=== PATIENT | male | born 1980 | race African-American/Black ===

== ENCOUNTER → 2019-04-15 | Day surgery (SDC) | payer MEDICARE, OTHER ==
[~2019-04-15] MED LIST: BUPIVACAINE 0.25% 30ML SDV INJ ONE; CEFAZOLIN SOD 1 GM/NS 50ML 50 ML IV ONE; DEPAKOTE500 MG PO; DEXAMETHASONE SOD PHOS INJ 4 MG/ML VIAL ONE; FENTANYL CITRATE/PF 100MCG/2 ML INJ ONE; GLYCOPYRROLATE INJ 1MG/ 5 ML SYR ONE; HYDROMORPHONE 2MG/ML 2 MG/ML ML ONE; INVEGA SUS234 MG/1.5 INJ; LIDOCAINE HCL 2% LOCAL INJ 5 ML SDV VIAL INJ ONE; MIDAZOLAM HCL 2 MG/2 ML VIAL ONE; MUPIROCIN 2% OINT 22 GM TUBE ONE; NEOSTIGMINE 5 MG/5ML SYR ONE; ONDANSETRON HCL INJ 2MG/ML 2ML 2 MG/ML VIAL ONE; PROPOFOL IV EMULSION 10 MG/ML 20 ML VIAL ONE; ROCURONIUM BROMIDE 10 MG/ML 5ML VIAL ONE; SEVOFLURANE INHAL SOLN 250 ML PEN BTL ONE; WELLBUTRIN SR150 MG PO; ZOLOFT50 MG PO
--- OUTSIDE RECORDS SUMMARY | 2019-04-15 05:36 | XMS REPORT | Clinical Summary ---
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 8 Active hydrOXYzine (ATARAX) 25 Take by 0 /13/201 MG tablet mouth. 8 Active paliperidone palmitate Inject into 0 117 mg/0.75 mL syringe the shoulder, 8 thigh, or buttocks. 04/30/2018 escitalopram (LEXAPRO) 10 Take 1 tablet 30 tablet 0 03/31/201 MG tablet (10 mg total) 8 by mouth daily for 30 days. Active Problems Not on file Social History Date Tobacco Use Types Packs/Day Years Used Never Smoker Smokeless Tobacco: Never Used Alcohol Use Drinks/Week oz/Week Comments No Sex Assigned at Date Recorded Not on file Industry Job Start Date Occupation Not on file Not on file Not on file Travel End Travel History Travel Start No recent travel history available. Last Filed Vital Signs Not on file Plan of Treatment Not on file Results Not on fileafter 04/14/2018 Insurance Type Payer Benefit Subscriber ID Effective Phone Address Plan / Dates Group HMO [employer] AMERIGROUP xxxxxxxxx 2017-P DUAL resent OPTIONS [facility] [place] AMERIGROUP AMERIGROUP xxxxxxxxx 2017-P -AMERIVANT resent AGE MCR O Advance Directives Patient has advance care planning documents on file. For more information, nely costa contact: Abhay Katz [phone] [place] [address]
--- OUTSIDE RECORDS SUMMARY | 2019-04-15 05:37 | XMS REPORT | Continuity of Care Document ---
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 03/16/2019 [facility] Schizoaffective disorder, bipolar type Active 03/14/2017 03/16/2019 [facility] Muscle ache Active 03/16/2019 [facility] Nonintractable headache Active 03/16/2019 [facility] Trauma Active 03/16/2019 [facility] Schizoaffective disorder Active 03/16/2019 [facility] Depressed mood Active 03/16/2019 [facility] Schizoaffective disorder, unspecified type Active 03/16/2019 [facility] Psychiatric complaint Active 03/16/2019 [facility] Depression, unspecified depression type Active 03/16/2019 [facility] Memory deficit Active 03/16/2019 [facility] Medications Medication Details Route Status Patient Instructions Ordering Provider Order Date Source buPROPion (WELLBUTRIN XL) 150 mg extended release tablet Take 1 tablet by mouth every morning. Oral Active 07/23/2018 [facility] buPROPion (WELLBUTRIN XL) 150 mg extended release tablet Take 1 tablet by mouth every morning. Oral Active 07/23/2018 [facility] buPROPion (WELLBUTRIN XL) 150 mg extended release tablet TK 1 T PO QAM No Longer Active 07/14/2018 [facility] sertraline (ZOLOFT) 100 mg tablet Take 1.5 tablets by mouth daily. Oral Active 06/18/2018 [facility] paliperidone (INVEGA SUSTENNA) 117 mg/0.75 mL Syrg Inject 0.75 mL intramuscularly every 30 days. Intramuscular No Longer Active 06/18/2018 [facility] divalproex (DEPAKOTE ER) 500 mg extended release tablet Take 1 tablet by mouth daily. Oral Active 06/18/2018 [facility] paliperidone (INVEGA SUSTENNA) 117 mg/0.75 mL Syrg Inject 0.75 mL intramuscularly every 30 days. Intramuscular No Longer Active 06/18/2018 [facility] divalproex (DEPAKOTE ER) 500 mg extended release tablet Take 1 tablet by mouth daily. Oral Active 06/18/2018 [facility] Sertraline 50 Mg Tablet Take 1 tablet by mouth daily. Oral Active 04/23/2018 [facility] sertraline (ZOLOFT) 50 mg tablet Take 1 tablet by mouth daily. Oral No Longer Active 04/23/2018 [facility] Divalproex Er 500 Mg Tablet,Extended Release 24 Hr Depakote Er 500 Mg Tablet,Extended Release Take 1 tablet by mouth daily. Oral Active 04/02/2018 [facility] divalproex (DEPAKOTE ER) 500 mg extended release tablet Take 1 tablet by mouth daily. Oral No Longer Active 04/02/2018 [facility] divalproex (DEPAKOTE ER) 500 mg extended release tablet Take 1 tablet by mouth daily. Oral No Longer Active 04/02/2018 [facility] Escitalopram 5 Mg Tablet Lexapro 5 Mg Tablet Take 1 tablet by mouth daily. Oral No Longer Active 03/26/2018 [facility] escitalopram (LEXAPRO) 5 mg tablet Take 1 tablet by mouth daily. Oral No Longer Active 03/26/2018 [facility] escitalopram (LEXAPRO) 5 mg tablet Take 1 tablet by mouth daily. Oral No Longer Active 03/26/2018 [facility] Escitalopram 5 Mg Tablet Lexapro 5 Mg Tablet Take 1 tablet by mouth daily. Oral No Longer Active 03/07/2018 [facility] Hydroxyzine Hcl 25 Mg Tablet Take 1 tablet by mouth 2 times daily as needed for Anxiety or Insomnia. Oral No Longer Active 03/07/2018 [facility] escitalopram (LEXAPRO) 5 mg tablet Take 1 tablet by mouth daily. Oral No Longer Active 03/07/2018 [facility] hydrOXYzine (ATARAX) 25 mg tablet Take 1 tablet by mouth 2 times daily as needed for Anxiety or Insomnia. Oral No Longer Active 03/07/2018 [facility] escitalopram (LEXAPRO) 5 mg tablet Take 1 tablet by mouth daily. Oral No Longer Active 03/07/2018 [facility] Divalproex Er 500 Mg Tablet,Extended Release 24 Hr Depakote Er 500 Mg Tablet,Extended Release Take 1 tablet by mouth daily. Oral No Longer Active 02/22/2018 [facility] divalproex (DEPAKOTE ER) 500 mg extended release tablet Take 1 tablet by mouth daily. Oral No Longer Active 02/22/2018 [facility] divalproex (DEPAKOTE ER) 500 mg extended release tablet Take 1 tablet by mouth daily. Oral No Longer Active 02/22/2018 [facility] Divalproex Er 500 Mg Tablet,Extended Release 24 Hr Depakote Er 500 Mg Tablet,Extended Release Take 1 tablet by mouth daily. Oral No Longer Active 01/22/2018 [facility] Invega Sustenna 117 Mg/0.75 Ml Intramuscular Syringe Inject 0.75 mL intramuscularly every 30 days. Intramuscular Active 01/22/2018 [facility] Invega Sustenna 156 Mg/Ml Intramuscular Syringe Inject 1.5 mL intramuscularly once for 1 dose today. Intramuscular No Longer Active 01/22/2018 [facility] divalproex (DEPAKOTE ER) 500 mg extended release tablet Take 1 tablet by mouth daily. Oral No Longer Active 01/22/2018 [facility] paliperidone (INVEGA SUSTENNA) 117 mg/0.75 mL Syrg Inject 0.75 mL intramuscularly every 30 days. Intramuscular No Longer Active 01/22/2018 [facility] paliperidone (INVEGA SUSTENNA) 156 mg/mL Syrg Inject 1.5 mL intramuscularly once for 1 dose today. Intramuscular No Longer Active 01/22/2018 [facility] paliperidone (INVEGA SUSTENNA) 117 mg/0.75 mL Syrg Inject 0.75 mL intramuscularly every 30 days. Intramuscular No Longer Active 01/22/2018 [facility] Fluoxetine 20 Mg Capsule Prozac 20 Mg Capsule Take 1 capsule by mouth daily. Oral No Longer Active 12/18/2017 [facility] FLUoxetine (PROZAC) 20 mg capsule Take 1 capsule by mouth daily. Oral No Longer Active 12/18/2017 [facility] FLUoxetine (PROZAC) 20 mg capsule Take 1 capsule by mouth daily. Oral No Longer Active 12/18/2017 [facility] Invega Sustenna 117 Mg/0.75 Ml Intramuscular Syringe Inject 0.75 mL intramuscularly every 30 days. Intramuscular No Longer Active 10/23/2017 [facility] Divalproex Er 250 Mg Tablet,Extended Release 24 Hr Take 1 tablet by mouth daily. Oral Inactive 10/23/2017 [facility] paliperidone (INVEGA SUSTENNA) 117 mg/0.75 mL Syrg Inject 0.75 mL intramuscularly every 30 days. Intramuscular No Longer Active 10/23/2017 [facility] Invega Sustenna 117 Mg/0.75 Ml Intramuscular Syringe Inject 0.75 mL intramuscularly every 30 days. Intramuscular No Longer Active 07/31/2017 [facility] Divalproex Er 500 Mg Tablet,Extended Release 24 Hr Take 2 tablets by mouth daily. Oral No Longer Active 07/31/2017 [facility] Invega Sustenna 117 Mg/0.75 Ml Intramuscular Syringe Inject 0.75 mL intramuscularly every 30 days. Intramuscular Inactive 06/05/2017 [facility] Divalproex Er 500 Mg Tablet,Extended Release 24 Hr Take 1 tablet by mouth every 12 hours. Oral No Longer Active 06/05/2017 [facility] Invega Sustenna 156 Mg/Ml Intramuscular Syringe Inject 1 mL intramuscularly once for 1 dose. Intramuscular No Longer Active 05/08/2017 [facility] paliperidone (INVEGA SUSTENNA) 234 mg/1.5 mL Syrg Inject 1.5 mL intramuscularly once for 1 dose. Intramuscular No Longer Active 05/01/2017 [facility] Divalproex Er 500 Mg Tablet,Extended Release 24 Hr Take 1 tablet by mouth every 12 hours. Oral No Longer Active 05/01/2017 [facility] Divalproex Er 500 Mg Tablet,Extended Release 24 Hr Take 1 tablet by mouth every 12 hours. Oral No Longer Active 04/10/2017 [facility] Paliperidone Er 3 Mg Tablet,Extended Release 24 Hr Invega 3 Mg Tablet,Extended Release Take 1 tablet by mouth every morning. Oral No Longer Active 04/10/2017 [facility] Ibuprofen 800 Mg Tablet Take 1 tablet by mouth every 8 hours as needed for Pain. Oral Active 11/26/2015 [facility] ibuprofen (MOTRIN) 800 mg tablet Take 1 tablet by mouth every 8 hours as needed for Pain. Oral No Longer Active 11/26/2015 [facility] Allergies, Adverse Reactions, Alerts Substance Category Reaction Severity Reaction type Status Date Reported Comments Source Immunizations Immunization Date Given Site Status Last Updated Comments Source INVEGA SUSTENNA 117 MG/0.75 ML 05/21/2018 completed [facility] INVEGA SUSTENNA 117 MG/0.75 ML 04/23/2018 completed [facility] INVEGA SUSTENNA 117 MG/0.75 ML 03/26/2018 completed [facility] INVEGA SUSTENNA 117 MG/0.75 ML 02/22/2018 completed [facility] INVEGA SUSTENNA 156 mg/mL IM inj In Clinic 01/22/2018 completed [facility] INVEGA SUSTENNA 117 MG/0.75 ML 11/20/2017 completed [facility] INVEGA SUSTENNA 117 MG/0.75 ML 10/23/2017 completed [facility] INVEGA SUSTENNA 117 MG/0.75 ML 09/15/2017 completed [facility] INVEGA SUSTENNA 117 MG/0.75 ML 07/31/2017 completed [facility] INVEGA SUSTENNA 117 MG/0.75 ML 07/03/2017 completed [facility] INVEGA SUSTENNA 117 MG/0.75 ML 06/05/2017 completed [facility] INVEGA SUSTENNA 156 mg/mL IM inj In Clinic 05/08/2017 completed [facility] INVEGA SUSTENNA 156 mg/mL IM inj In Clinic 05/01/2017 completed [facility] PPD 03/24/2017 completed [facility] Results Order Name Results Value Reference Range Date Interpretation Comments Source URINE DRUG SCREEN <td ID="[id number]">Amphetamine</td><td>Negative</td><td>NEG</td><td>BT MAIN-STATION 4</td><td ID="[id number]"/> Negative NEG 02/15/2019 [facility] URINE DRUG SCREEN <td ID="[id number]">Barbiturate</td><td>Negative</td><td>NEG</td><td>BT MAIN-STATION 4</td><td ID="[id number]"/> Negative NEG 02/15/2019 [facility] URINE DRUG SCREEN <td ID="[id number]">Benzodiazepine</td><td>Negative</td><td>NEG</td><td>BT MAIN-STATION 4</td><td ID="[id number]"/> Negative NEG 02/15/2019 [facility] URINE DRUG SCREEN <td ID="[id number]">Cannabinoid</td><td>Negative</td><td>NEG</td><td>BT MAIN-STATION 4</td><td ID="[id number]"/> Negative NEG 02/15/2019 [facility] URINE DRUG SCREEN <td ID="[id number]">Cocaine</td><td>Negative</td><td>NEG</td><td>BT MAIN-STATION 4</td><td ID="[id number]"/> Negative NEG 02/15/2019 [facility] URINE DRUG SCREEN <td ID="[id number]">Opiate, Ur</td><td>Negative</td><td>NEG</td><td>BT MAIN-STATION 4</td><td ID="[id number]"/> Negative NEG 02/15/2019 [facility] URINE DRUG SCREEN <td ID="[id number]">PCP</td><td>Negative</td><td>NEG</td><td>BT MAIN-STATION 4</td><td ID="[id number]"/> Negative NEG 02/15/2019 [facility] UA CHEMISTRIES <td ID="[id number]">Color</td><td>Yellow</td><td/><td>BT MAIN-STATION 3</td><td ID="[id number]"/> Yellow 02/15/2019 [facility] UA CHEMISTRIES Clarity Clear 02/15/2019 [facility] UA CHEMISTRIES <td ID="[id number]">Spec Cecil</td><td>1.029</td><td>1.001 - 1.035</td><td>BT MAIN-STATION 3</td><td ID="[id number]"/> 1.029 1.001 - 1.035 02/15/2019 [facility] UA CHEMISTRIES <td ID="[id number]">pH</td><td>5.0</td><td>5 - 8</td><td>BT MAIN-STATION 3</td><td ID="[id number]"/> 5.0 5 - 8 02/15/2019 [facility] UA CHEMISTRIES <td ID="[id number]">Protein</td><td><span style="flagData">1+</span><span style="flagData"> (A)</span></td>&lt ;td>NEG</td><td>BT MAIN-STATION 3</td><td ID="[id number]"/> 1+ NEG 02/15/2019 [facility] UA CHEMISTRIES <td ID="[id number]">Glucose</td><td>Negative</td><td>NEG</td><td>BT MAIN-STATION 3</td><td ID="[id number]"/> Negative NEG 02/15/2019 [facility] UA CHEMISTRIES <td ID="[id number]">Ketone</td><td>Negative</td><td>NEG</td><td>BT MAIN-STATION 3</td><td ID="[id number]"/> Negative NEG 02/15/2019 [facility] UA CHEMISTRIES <td ID="[id number]">Bilirubin</td><td>Negative</td><td>NEG</td><td>BT MAIN-STATION 3</td><td ID="[id number]"/> Negative NEG 02/15/2019 [facility] UA CHEMISTRIES <td ID="[id number]">Nitrate</td><td>Negative</td><td>NEG</td><td>BT MAIN-STATION 3</td><td ID="[id number]"/> Negative NEG 02/15/2019 [facility] UA CHEMISTRIES <td ID="[id number]">Urobilinogen</td><td>1.0</td><td>0.2 - 1.0 EU/dL</td><td>BT MAIN-STATION 3</td><td ID="[id number]"/> 1.0 EU/dL 0.2 - 1 02/15/2019 [facility] UA CHEMISTRIES <td ID="[id number]">Leukocyte</td><td>Negative</td><td>NEG</td><td>BT MAIN-STATION 3</td><td ID="[id number]"/> Negative NEG 02/15/2019 [facility] UA CHEMISTRIES Blood Negative NEG 02/15/2019 [facility] UA CHEMISTRIES RBC 3 0 - 4 02/15/2019 [facility] UA CHEMISTRIES WBC <1 0 - 5 02/15/2019 [facility] UA CHEMISTRIES Mucous Present 02/15/2019 [facility] UA CHEMISTRIES Lab Interpretation Abnormal 02/15/2019 [facility] URINE DRUG SCREEN Amphetamine Negative NEG 07/23/2018 Calibrated Standard: D-Methamphetamine Positive if urine level >rt=4725 ng/mL Test performed on [id number] using EMIT Immunoassay [facility] URINE DRUG SCREEN Barbiturate Negative NEG 07/23/2018 Calibrated Standard: Secobarbital Positive if urine level is >te=828 ng/mL Test performed on [id number] using EMIT Immunoassay [facility] URINE DRUG SCREEN Benzodiazepine Negative NEG 07/23/2018 Calibrated Standard: Lormethazepam Positive if urine level is >dt=234 ng/mL Test performed on [id number] using EMIT Immunoassay [facility] URINE DRUG SCREEN Cannabinoid Negative NEG 07/23/2018 Calibrated Standard: 11 nor-delta(9)-THC carboxylic a Positive if urine level >or=50 Test performed on [id number] using EMIT Immunoassay [facility] URINE DRUG SCREEN Cocaine Negative NEG 07/23/2018 Calibrated Standard: Benzoylecgonine Positive if urine level >pk=364 Test performed on [id number] using EMIT Immunoassay [facility] URINE DRUG SCREEN Opiate, Ur Negative NEG 07/23/2018 Calibrated Standard: Morphine Positive if urine level >tx=989 Test performed on [id number] using EMIT Immunoassay [facility] URINE DRUG SCREEN PCP Negative NEG 07/23/2018 Calibrated Standard: Phencyclidine Positive if urine level >or=25 Test performed on [id number] using EMIT Immunoassay Urine Toxicology Screen results are to be used only for Medical purposes. [facility] UA CHEMISTRIES Color Yellow 07/23/2018 [facility] UA CHEMISTRIES Clarity Clear 07/23/2018 [facility] UA CHEMISTRIES Spec Cecil 1.018 1.001 - 1.035 07/23/2018 [facility] UA CHEMISTRIES pH 7.0 5 - 8 07/23/2018 [facility] UA CHEMISTRIES Protein Negative NEG 07/23/2018 [facility] UA CHEMISTRIES Glucose Negative NEG 07/23/2018 [facility] UA CHEMISTRIES Ketone Negative NEG 07/23/2018 [facility] UA CHEMISTRIES Bilirubin Negative NEG 07/23/2018 [facility] UA CHEMISTRIES Nitrate Negative NEG 07/23/2018 [facility] UA CHEMISTRIES Urobilinogen <1.0 0.2 - 1 07/23/2018 [facility] UA CHEMISTRIES Leukocyte Negative NEG 07/23/2018 [facility] UA CHEMISTRIES Blood Negative NEG 07/23/2018 [facility] UA CHEMISTRIES Color Yellow 03/07/2018 [facility] UA CHEMISTRIES Clarity Clear 03/07/2018 [facility] UA CHEMISTRIES Spec Cecil 1.030 1.001 - 1.035 03/07/2018 [facility] UA CHEMISTRIES pH 5.0 5 - 8 03/07/2018 [facility] UA CHEMISTRIES Protein 1+ NEG 03/07/2018 Abnormal [facility] UA CHEMISTRIES Glucose Negative NEG 03/07/2018 [facility] UA CHEMISTRIES Ketone Trace NEG 03/07/2018 Abnormal [facility] UA CHEMISTRIES Bilirubin Negative NEG 03/07/2018 [facility] UA CHEMISTRIES Nitrate Negative NEG 03/07/2018 [facility] UA CHEMISTRIES Urobilinogen <1.0 0.2 - 1 03/07/2018 [facility] UA CHEMISTRIES Leukocyte Negative NEG 03/07/2018 [facility] UA CHEMISTRIES Blood Negative NEG 03/07/2018 [facility] UA CHEMISTRIES RBC 3 /HPF 0 - 4 03/07/2018 [facility] UA CHEMISTRIES WBC <1 0 - 5 03/07/2018 [facility] UA CHEMISTRIES Mucous Present 03/07/2018 [facility] UA CHEMISTRIES Lab Interpretation Abnormal 03/07/2018 [facility] URINE DRUG SCREEN Amphetamine Negative NEG 03/07/2018 Calibrated Standard: D-Methamphetamine Positive if urine level >tl=9691 ng/mL Test performed on [id number] using EMIT Immunoassay [facility] URINE DRUG SCREEN Barbiturate Negative NEG 03/07/2018 Calibrated Standard: Secobarbital Positive if urine level is >vk=863 ng/mL Test performed on [id number] using EMIT Immunoassay [facility] URINE DRUG SCREEN Benzodiazepine Negative NEG 03/07/2018 Calibrated Standard: Lormethazepam Positive if urine level is >sm=785 ng/mL Test performed on [id number] using EMIT Immunoassay [facility] URINE DRUG SCREEN Cannabinoid Negative NEG 03/07/2018 Calibrated Standard: 11 nor-delta(9)-THC carboxylic a Positive if urine level >or=50 Test performed on [id number] using EMIT Immunoassay [facility] URINE DRUG SCREEN Cocaine Negative NEG 03/07/2018 Calibrated Standard: Benzoylecgonine Positive if urine level >nb=406 Test performed on [id number] using EMIT Immunoassay [facility] URINE DRUG SCREEN Opiate, Ur Negative NEG 03/07/2018 Calibrated Standard: Morphine Positive if urine level >qn=231 Test performed on [id number] using EMIT Immunoassay [facility] URINE DRUG SCREEN PCP Negative NEG 03/07/2018 Calibrated Standard: Phencyclidine Positive if urine level >or=25 Test performed on [id number] using EMIT Immunoassay Urine Toxicology Screen results are to be used only for Medical purposes. [facility] Vital Signs Vital Sign Value Date Comments Source Systolic (mm Hg) 119 02/15/2019 [facility] Diastolic (mm Hg) 76 02/15/2019 [facility] Heart Rate 74 02/15/2019 [facility] Temperature Oral (F) 37.11 Aidee 02/15/2019 [facility] Respitory Rate 18 02/15/2019 [facility] Height 180.3 cm 02/15/2019 [facility] Weight 104.327 02/15/2019 [facility] Systolic (mm Hg) 122 07/23/2018 [facility] Diastolic (mm Hg) 84 07/23/2018 [facility] Heart Rate 93 07/23/2018 [facility] Temperature Oral (F) 36.83 Aidee 07/23/2018 [facility] Respitory Rate 18 07/23/2018 [facility] Height 177.8 cm 07/23/2018 [facility] Weight 104.872 07/23/2018 [facility] Systolic (mm Hg) 124 04/23/2018 [facility] Diastolic (mm Hg) 76 04/23/2018 [facility] Heart Rate 88 04/23/2018 [facility] Temperature Oral (F) 36.67 Aidee 04/23/2018 [facility] Respitory Rate 18 04/23/2018 [facility] Height 180.3 cm 04/23/2018 [facility] Weight 102.967 04/23/2018 [facility] BMI Calculated 31.66 04/23/2018 [facility] Systolic (mm Hg) 131 03/31/2018 [facility] Diastolic (mm Hg) 87 03/31/2018 [facility] Heart Rate 84 03/31/2018 [facility] Temperature Oral (F) 36.72 Aidee 03/31/2018 [facility] Respitory Rate 16 03/31/2018 [facility] Height 180.3 cm 03/26/2018 [facility] Weight 102.513 03/26/2018 [facility] BMI Calculated 31.52 03/26/2018 [facility] Encounters Location Location Details Encounter Type Encounter Number Reason For Visit Attending Provider ADM Date DC Date Status Source Mental Health Services BT Office Visit [id number] Other schizophrenia Undifferentiated schizophrenia Dante Dao MD 05/01/2017 05/01/2017 [facility] Mental Health Services BT Office Visit [id number] Other schizophrenia Dante Dao MD 05/08/2017 05/08/2017 [facility] Mental Health Services BT Office Visit [id number] Other schizophrenia Undifferentiated schizophrenia Dante Dao MD 06/05/2017 06/05/2017 [facility] Mental Health Services BT Nurse Only [id number] Psychiatric problem Peggy Basilio RN 07/03/2017 07/03/2017 [facility] Mental Health Services BT Office Visit [id number] Other schizophrenia Undifferentiated schizophrenia Dante Dao MD 07/31/2017 07/31/2017 [facility] Mental Health Services BT Office Visit [id number] Undifferentiated schizophrenia Clover Martell MD 09/15/2017 09/15/2017 [facility] ASK YOUR NURSE PROGRAM Nurse Triage [id number] Ratna Meyer 10/21/2017 [facility] BT Office Visit [id number] Undifferentiated schizophrenia Dante Dao MD 10/23/2017 10/23/2017 [facility] Mental Health Services BT Office Visit [id number] Other schizophrenia Dante Dao MD 11/20/2017 11/20/2017 [facility] Mental Health Services BT Office Visit [id number] Depressed mood Dante Dao MD 12/18/2017 12/18/2017 [facility] Mental Health Services BT Office Visit [id number] Dante Dao MD 01/22/2018 01/22/2018 [facility] MHS INT OUT PROG BT Office Visit [id number] Gabe Vega MD 02/22/2018 02/22/2018 [facility] Mental Health Services BT Office Visit [id number] Nichole Loving Fellow() 03/05/2018 03/05/2018 [facility] BT Emergency [id number] Kira Tran MD 03/07/2018 03/08/2018 [facility] Behavioral Health/Counseling [facility] Office Visit [id number] Kulwinder Schrader 03/24/2018 03/24/2018 [facility] Refill [id number] Kira Tran MD 03/25/2018 [facility] MHS INT OUT PROG BT Office Visit [id number] Nichole Monteiro MD 03/26/2018 03/26/2018 [facility] Emergency [place] BT Emergency [id number] 03/31/2018 03/31/2018 [facility] LOTS PSYCHIATRY Telephone [id number] Dante Dao MD 04/02/2018 [facility] Mental Health Services BT Office Visit [id number] Harry Umairhuseyin ResidentMD 04/23/2018 04/23/2018 [facility] Mental Health Services BT Nurse Only [id number] Cherelle Ortiz RN 05/21/2018 05/21/2018 [facility] Mental Health Services BT Office Visit [id number] Dante Dao MD 06/18/2018 06/18/2018 [facility] Mental Health Services BT Orders Only [id number] Clover Martell MD 07/22/2018 [facility] Mental Health Services BT Nurse Only [id number] Clover Martell MD 07/22/2018 07/22/2018 [facility] Emergency [place] BT Emergency [id number] Shelly Ramirez MD 07/23/2018 07/23/2018 [facility] Mental Health Services BT Office Visit [id number] Rebecca Luis ResidentAR 07/23/2018 07/23/2018 [facility] Travel [id number] 02/14/2019 [facility] Emergency [place] BT Emergency [id number] Claudia Donovan MD 02/15/2019 02/15/2019 [facility] Procedures Procedure Code Date Perfomer Comments Source UA CHEMISTRIES [id number] 02/15/2019 [facility] URINE DRUG SCREEN [id number] 02/15/2019 [facility] UA CHEMISTRIES [id number] 07/23/2018 [facility] URINE DRUG SCREEN [id number] 07/23/2018 [facility] URINE DRUG SCREEN [id number] 03/08/2018 [facility] UA CHEMISTRIES [id number] 03/08/2018 [facility]
--- OUTSIDE RECORDS SUMMARY | 2019-04-15 05:37 | XMS REPORT | Clinical Summary ---
Author Author [facility] Organization [facility] Address Unknown Phone Unavailable Care Team Providers Care Line Inspector Name Role Phone PCP Unavailable Allergies No Known Allergies Medications End Date Status Medication Sig Dispensed Refills Start Date Active sertraline (ZOLOFT) 100 Take 1.5 90 tablet 1 mg tabletIndications: tablets by 8 Depression, unspecified mouth daily. depression type Active divalproex (DEPAKOTE ER) Take 1 tablet 90 tablet 1 500 mg extended release by mouth 8 tabletIndications: daily. Schizoaffective disorder, unspecified type Active buPROPion (WELLBUTRIN XL) Take 1 tablet 30 tablet 2 150 mg extended release by mouth 8 tabletIndications: every Depressed mood morning. 06/18/2018 Discontinued ibuprofen (MOTRIN) 800 mg Take 1 tablet 20 tablet 0 tabletIndications: Muscle by mouth 6 ache, Nonintractable every 8 hours headache, unspecified as needed for chronicity pattern, Pain. unspecified headache type 01/22/2018 Discontinued paliperidone (INVEGA Inject 0.75 0.75 mL 3 SUSTENNA) 117 mg/0.75 mL mL 7 Syrg intramuscular ly every 30 days. 03/26/2018 Discontinued FLUoxetine (PROZAC) 20 mg Take 1 30 capsule 2 capsuleIndications: capsule by 8 Depressed mood mouth daily. 02/22/2018 Discontinued divalproex (DEPAKOTE ER) Take 1 tablet 30 tablet 2 500 mg extended release by mouth 8 tabletIndications: daily. Schizoaffective disorder, unspecified type 06/18/2018 Discontinued paliperidone (INVEGA Inject 0.75 0.75 mL 3 SUSTENNA) 117 mg/0.75 mL mL 8 SyrgIndications: intramuscular Schizoaffective disorder, ly every 30 unspecified type days. 01/22/2018 paliperidone (INVEGA Inject 1.5 mL 1.5 mL 0 SUSTENNA) 156 mg/mL intramuscular 8 SyrgIndications: ly once for 1 Schizoaffective disorder, dose today. unspecified type 04/02/2018 Discontinued divalproex (DEPAKOTE ER) Take 1 tablet 30 tablet 1 500 mg extended release by mouth 8 tabletIndications: daily. Schizoaffective disorder, unspecified type 03/26/2018 Discontinued escitalopram (LEXAPRO) 5 Take 1 tablet 20 tablet 0 mg tabletIndications: by mouth 8 Schizoaffective disorder, daily. unspecified type 04/23/2018 Discontinued hydrOXYzine (ATARAX) 25 Take 1 tablet 40 tablet 0 mg tabletIndications: by mouth 2 8 Schizoaffective disorder, times daily unspecified type as needed for Anxiety or Insomnia. 04/23/2018 Discontinued escitalopram (LEXAPRO) 5 Take 1 tablet 30 tablet 1 mg tabletIndications: by mouth 8 Schizoaffective disorder, daily. unspecified type 06/18/2018 Discontinued divalproex (DEPAKOTE ER) Take 1 tablet 90 tablet 0 500 mg extended release by mouth 8 tabletIndications: daily. Schizoaffective disorder, unspecified type 06/18/2018 Discontinued sertraline (ZOLOFT) 50 mg Take 1 tablet 30 tablet 1 tabletIndications: by mouth 8 Depression, unspecified daily. depression type 07/23/2018 Discontinued paliperidone (INVEGA Inject 0.75 0.75 mL 4 SUSTENNA) 117 mg/0.75 mL mL 8 SyrgIndications: intramuscular Schizoaffective disorder, ly every 30 unspecified type days. 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 Schizoaffective disorder, bipolar type 03/14/2017 Muscle ache Nonintractable headache Trauma Schizoaffective disorder Encounters Care Team Description Date Type Specialty Rebecca Luis ResidentMD Le, Hai, MD Depressed mood (Primary Dx) 07/23/2018 Office Visit Psychiatry Shelly Ramirez MD Schizoaffective disorder, unspecified type (Primary Dx) 07/23/2018 Emergency Emergency Medicine Clover Martell MD Magdos, Christi, RN Psychiatric complaint (Primary Dx) 07/22/2018 Nurse Only Psychiatry Clover Martell MD Schizoaffective disorder, unspecified type 07/22/2018 Orders Only Psychiatry Dante Dao MD Depression, unspecified depression type; Schizoaffective disorder, unspecified type 06/18/2018 Office Visit Psychiatry Cherelle Ortiz RN Le, Hai, MD 05/21/2018 Nurse Only Psychiatry Harry Vera ResidentMD Schizoaffective disorder, unspecified type (Primary Dx); Depression, unspecified depression type 04/23/2018 Office Visit Psychiatry Dante Dao MD Follow-up 04/02/2018 Telephone Psychiatry 03/30/2018 Emergency Emergency Medicine Nichole John MD Schizoaffective disorder, unspecified type 03/26/2018 Office Visit Psychiatry Kira Tran MD Schizoaffective disorder, unspecified type 03/25/2018 Refill Psychiatry Kulwinder Schrader Schizoaffective disorder, unspecified type (Primary Dx) 03/24/2018 Office Visit Psychology Kira Tran MD Schizoaffective disorder, unspecified type (Primary Dx) 03/07/2018 Emergency Emergency Medicine Nichole Loving, Fellow(MD) Dante Dao MD Schizoaffective disorder, unspecified type (Primary Dx) 03/05/2018 Office Visit Psychiatry Gabe Vega MD Schizoaffective disorder, bipolar type (Primary Dx); Schizoaffective disorder, unspecified type 02/22/2018 Office Visit Psychiatry Dante Dao MD Schizoaffective disorder, unspecified type (Primary Dx) 01/22/2018 Office Visit Psychiatry after 12/22/2017 Immunizations Name Dates Previously Given Next Due INVEGA SUSTENNA 117 05/21/2018, 04/23/2018, 03/26/2018, 02/22/2018, MG/0.75 ML 11/20/2017, 10/23/2017, 09/15/2017, 07/31/2017, 07/03/2017, 06/05/2017 INVEGA SUSTENNA 156 mg/mL 01/22/2018, 05/08/2017, 05/01/2017 IM inj In Clinic PPD 03/24/2017 Social History Date Tobacco Use Types Packs/Day Years Used Former Smoker Alcohol Use Drinks/Week oz/Week Comments No Sex Assigned at Date Recorded Not on file Industry Job Start Date Occupation Not on file Not on file Not on file Travel End Travel History Travel Start No recent travel history available. Last Filed Vital Signs Time Taken Vital Sign Reading 07/23/2018 2:13 PM CDT Blood Pressure 122/84 07/23/2018 2:13 PM CDT Pulse 93 07/23/2018 2:13 PM CDT Temperature 36.8 C (98.3 F) 07/23/2018 2:13 PM CDT Respiratory Rate 18 07/23/2018 2:13 PM CDT Oxygen Saturation 98% - Inhaled Oxygen - Concentration 07/23/2018 2:13 PM CDT Weight 104.9 kg (231 lb 3.2 oz) 07/23/2018 2:13 PM CDT Height 177.8 cm (5' 10") 07/23/2018 2:13 PM CDT Body Mass Index 33.17 Plan of Treatment Health Maintenance Due Date Last Done Comments IMM Influenza Seasonal 07/26/2018 Oct to December (>/=19 yrs) Procedures Comments Procedure Name Priority Date/Time Associated Diagnosis URINE DRUG SCREEN STAT 07/23/2018 12:37 PM CDT UA CHEMISTRIES STAT 07/23/2018 12:37 PM CDT UA CHEMISTRIES STAT 03/07/2018 8:00 PM CDT URINE DRUG SCREEN STAT 03/07/2018 8:00 PM CDT after 12/22/2017 Results * UA CHEMISTRIES (07/23/2018 12:37 PM CDT) Only the most recent of 2 results within the time period is included. Color Yellow BT MAIN-STATION 3 Clarity Clear BT MAIN-STATION 3 Spec [place] 1.018 1.001 - 1.035 BT MAIN-STATION 3 pH 7.0 5 - 8 BT MAIN-STATION 3 Protein Negative NEG BT MAIN-STATION 3 Glucose Negative NEG BT MAIN-STATION 3 Ketone Negative NEG BT MAIN-STATION 3 Bilirubin Negative NEG BT MAIN-STATION 3 Nitrate Negative NEG BT MAIN-STATION 3 Urobilinogen <1.0 0.2 - 1.0 EU/dL BT MAIN-STATION 3 Leukocyte Negative NEG BT MAIN-STATION 3 Blood Negative NEG BT MAIN-STATION 3 Performing Organization Address City/State[facility] Phone Number [facility] BT MAIN-STATION 3 * URINE DRUG SCREEN (07/23/2018 12:37 PM CDT) Only the most recent of 2 results within the time period is included. Amphetamine Negative NEG BT MAIN-STATION Comment: 1 Calibrated Standard: D-Methamphetamine Positive if urine level >mp=6524 ng/mL Test performed on [id number] using EMIT Immunoassay Barbiturate Negative NEG BT MAIN-STATION Comment: 1 Calibrated Standard: Secobarbital Positive if urine level is >ac=570 ng/mL Test performed on [id number] using EMIT Immunoassay Benzodiazepine Negative NEG BT MAIN-STATION Comment: 1 Calibrated Standard: Lormethazepam Positive if urine level is >yr=282 ng/mL Test performed on [id number] using EMIT Immunoassay Cannabinoid Negative NEG BT MAIN-STATION Comment: 1 Calibrated Standard: 11 nor-delta(9)-THC carboxylic a Positive if urine level >or=50 Test performed on [id number] using EMIT Immunoassay Cocaine Negative NEG BT MAIN-STATION Comment: 1 Calibrated Standard: Benzoylecgonine Positive if urine level >nh=381 Test performed on [id number] using EMIT Immunoassay Opiate, Ur Negative NEG BT MAIN-STATION Comment: 1 Calibrated Standard: Morphine Positive if urine level >vo=653 Test performed on [id number] using EMIT Immunoassay PCP Negative NEG BT MAIN-STATION Comment: 1 Calibrated Standard: Phencyclidine Positive if urine level >or=25 Test performed on [id number] using EMIT Immunoassay Urine Toxicology Screen results are to be used only for Medical purposes. Performing Organization Address City/State/Zipcode Phone Number ARCELIA BT MAIN-STATION 1 after 12/22/2017 Insurance Type Payer Benefit Subscriber ID Effective Phone Address Plan / Dates Group [employer] HMO AMER[employer] xxxxxxxxx 2017-P [phone] [address] [place] [address] [employer] MEDICA[employer] HMO [employer] xxxxxxxxx 2017- [phone] [address] [address] [place] [address] Advance Directives For more information, please contact: [address] [address] Date Inactivated Comments Code Status Date Activated 03/27/2017 9:44 PM Full Code 03/17/2017 3:39 AM
--- OUTSIDE RECORDS SUMMARY | 2019-04-15 05:37 | XMS REPORT | Clinical Summary ---
Author Author [facility] Organization [facility] Address Unknown Phone Unavailable Care Team Providers Care Tailor [employer] Name Role Phone PCP Unavailable Allergies No [...] for chronicity pattern, Pain. unspecified headache type 03/26/2018 Discontinued FLUoxetine (PROZAC) 20 mg Take [...] disorder, ly every 30 unspecified type days. 04/02/2018 Discontinued divalproex (DEPAKOTE ER) Take 1 [...] disorder, unspecified type 06/18/2018 Office Visit Psychiatry Cherlele Ortiz RN Le, Hai, MD 05/21/2018 Nurse [...] disorder, unspecified type 02/22/2018 Office Visit Psychiatry after 02/03/2018 Immunizations Name Dates Previously Given Next Due [...] Date Last Done Comments IMM Influenza Seasonal 07/26/2019 Oct to December (>/=19 yrs) Procedures Comments Procedure Name Priority Date/Time Associated Diagnosis URINE DRUG SCREEN STAT 07/23/2018 12:37 PM CDT UA CHEMISTRIES STAT 07/23/2018 12:37 PM CDT UA CHEMISTRIES STAT 03/07/2018 8:00 PM CDT URINE DRUG SCREEN STAT 03/07/2018 8:00 PM CDT after 02/03/2018 Results * UA CHEMISTRIES (07/23/2018 12:37 PM CDT) Only the most recent of 2 results within the time period is included. Color Yellow BT MAIN-STATION 3 Clarity Clear BT MAIN-STATION 3 Spec [place] 1.018 1.001 - 1.035 BT MAIN-STATION 3 [...] NEG BT MAIN-STATION 3 Performing Organization Address City/State/Zipcode Phone Number MISYS BT MAIN-STATION 3 * URINE DRUG SCREEN (07/23/2018 12:37 PM CDT) Only the most recent of 2 results within the time period is included. Amphetamine Negative NEG BT MAIN-STATION Comment: 1 Calibrated Standard: D-Methamphetamine Positive if urine level >sq=8639 ng/mL Test performed on [id number] using EMIT Immunoassay Barbiturate Negative NEG BT MAIN-STATION Comment: 1 Calibrated Standard: Secobarbital Positive if urine level is >ka=282 ng/mL Test performed on [id number] using EMIT Immunoassay Benzodiazepine Negative NEG BT MAIN-STATION Comment: 1 Calibrated Standard: Lormethazepam Positive if urine level is >wn=097 ng/mL Test performed on [id number] using EMIT Immunoassay Cannabinoid Negative NEG BT MAIN-STATION Comment: 1 Calibrated Standard: 11 nor-delta(9)-THC carboxylic a Positive if urine level >or=50 Test performed on [id number] using EMIT Immunoassay Cocaine Negative NEG BT MAIN-STATION Comment: 1 Calibrated Standard: Benzoylecgonine Positive if urine level >as=584 Test performed on [id number] using EMIT Immunoassay Opiate, Ur Negative NEG BT MAIN-STATION Comment: 1 Calibrated Standard: Morphine Positive if urine level >fe=353 Test performed on [id number] using EMIT Immunoassay PCP Negative NEG BT MAIN-STATION Comment: 1 Calibrated Standard: Phencyclidine Positive if urine level >or=25 Test performed on [id number] using EMIT Immunoassay Urine Toxicology Screen results are to be used only for Medical purposes. Performing Organization Address [facility]/State[facility] Phone Number [facility] BT MAIN-STATION 1 after 02/03/2018 Insurance Type Payer Benefit Subscriber ID Effective Phone Address Plan / Dates Group [employer] HMO AMER[employer] xxxxxxxxx 2017-P [phone] [address] [place] [address] [employer] MEDICA[employer] HMO [employer] xxxxxxxxx 2017- [phone] [address] [address] [place] [address] Advance Directives For more information, please contact: [address] [address] Date Inactivated Comments Code Status Date Activated 03/27/2017 9:44 PM Full Code 03/17/2017 3:39 AM
--- OUTSIDE RECORDS SUMMARY | 2019-04-15 05:37 | XMS REPORT | Clinical Summary ---
Author Author [facility] Organization [facility] Address Unknown Phone Unavailable Care Team Providers Care Health Technician Name Role Phone PCP Unavailable Allergies No Known Allergies Current Medications Prescription Sig. Disp. Refills Start End Date Status Date ibuprofen (MOTRIN) 800 mg Take 1 tablet by mouth 20 tablet 0 11/26/19 Active tabletIndications: Muscle every 8 hours as needed 16 ache, Nonintractable for Pain. headache, unspecified chronicity pattern, unspecified headache type paliperidone (INVEGA Inject 0.75 mL 0.75 mL 3 01/23/20 Active SUSTENNA) 117 mg/0.75 mL intramuscularly every 30 18 SyrgIndications: days. Schizoaffective disorder, unspecified type hydrOXYzine (ATARAX) 25 Take 1 tablet by mouth 2 40 tablet 0 03/07/20 Active mg tabletIndications: times daily as needed for 18 Schizoaffective disorder, Anxiety or Insomnia. unspecified type escitalopram (LEXAPRO) 5 Take 1 tablet by mouth 30 tablet 1 03/26/20 Active mg tabletIndications: daily. 18 Schizoaffective disorder, unspecified type divalproex (DEPAKOTE ER) Take 1 tablet by mouth 90 tablet 0 04/02/20 Active 500 mg extended release daily. 18 tabletIndications: Schizoaffective disorder, unspecified type divalproex (DEPAKOTE) 500 Take 1 tablet by mouth 60 tablet 1 04/10/20 05/01/20 Discontin mg extended release every 12 hours. 17 17 ued tabletIndications: Undifferentiated schizophrenia paliperidone (INVEGA) 3 Take 1 tablet by mouth 30 tablet 1 04/10/20 05/01/20 Discontin mg extended release every morning. 17 17 ued tabletIndications: Undifferentiated schizophrenia paliperidone (INVEGA Inject 1.5 mL 1.5 mL 0 05/01/20 05/01/20 SUSTENNA) 234 mg/1.5 mL intramuscularly once for 17 17 SyrgIndications: Other 1 dose. schizophrenia divalproex (DEPAKOTE) 500 Take 1 tablet by mouth 60 tablet 2 05/01/20 06/05/20 Discontin mg extended release every 12 hours. 17 17 ued tabletIndications: Undifferentiated schizophrenia paliperidone (INVEGA Inject 1 mL 1 mL 0 05/08/20 05/08/20 SUSTENNA) 156 mg/mL intramuscularly once for 17 17 SyrgIndications: Other 1 dose. schizophrenia paliperidone (INVEGA Inject 0.75 mL 0.75 mL 1 06/05/20 06/05/20 Discontin SUSTENNA) 117 mg/0.75 mL intramuscularly every 30 17 17 ued SyrgIndications: Other days. schizophrenia paliperidone (INVEGA Inject 0.75 mL 0.75 mL 2 06/05/20 07/31/20 Discontin SUSTENNA) 117 mg/0.75 mL intramuscularly every 30 17 17 ued SyrgIndications: Other days. schizophrenia divalproex (DEPAKOTE) 500 Take 1 tablet by mouth 60 tablet 2 06/05/20 07/31/20 Discontin mg extended release every 12 hours. 17 17 ued tabletIndications: Undifferentiated schizophrenia paliperidone (INVEGA Inject 0.75 mL 0.75 mL 3 07/31/20 10/23/20 Discontin SUSTENNA) 117 mg/0.75 mL intramuscularly every 30 17 17 ued SyrgIndications: Other days. schizophrenia divalproex (DEPAKOTE) 500 Take 2 tablets by mouth 60 tablet 2 07/31/20 10/23/20 Discontin mg extended release daily. 17 17 ued tabletIndications: Undifferentiated schizophrenia paliperidone (INVEGA Inject 0.75 mL 0.75 mL 3 10/23/20 01/23/20 Discontin SUSTENNA) 117 mg/0.75 mL intramuscularly every 30 17 18 ued Syrg days. divalproex (DEPAKOTE) 250 Take 1 tablet by mouth 30 tablet 1 10/23/20 10/23/20 Discontin mg extended release daily. 17 17 ued tabletIndications: Undifferentiated schizophrenia divalproex (DEPAKOTE) 250 Take 1 tablet by mouth 30 tablet 1 10/23/20 11/20/19 Discontin mg extended release daily. 17 18 ued tabletIndications: Undifferentiated schizophrenia FLUoxetine (PROZAC) 20 mg Take 1 capsule by mouth 30 capsule 2 12/18/19 03/26/20 Discontin capsuleIndications: daily. 18 18 ued Depressed mood divalproex (DEPAKOTE ER) Take 1 tablet by mouth 30 tablet 2 01/23/20 02/23/20 Discontin 500 mg extended release daily. 18 18 ued tabletIndications: Schizoaffective disorder, unspecified type paliperidone (INVEGA Inject 1.5 mL 1.5 mL 0 01/23/20 01/23/20 SUSTENNA) 156 mg/mL intramuscularly once for 18 18 SyrgIndications: 1 dose today. Schizoaffective disorder, unspecified type divalproex (DEPAKOTE ER) Take 1 tablet by mouth 30 tablet 1 02/23/20 04/02/20 Discontin 500 mg extended release daily. 18 18 ued tabletIndications: Schizoaffective disorder, unspecified type escitalopram (LEXAPRO) 5 Take 1 tablet by mouth 20 tablet 0 03/07/20 03/26/20 Discontin mg tabletIndications: daily. 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 Schizoaffective disorder, bipolar type 03/14/2017 Muscle ache Nonintractable headache Trauma Schizoaffective disorder Encounters Date Type Specialty Care Team Description 04/02/2018 Telephone Psychiatry Dante Dao MD Follow-up 03/30/2018 Emergency Emergency Medicine 03/26/2018 Office Visit Psychiatry Nichole John Schizoaffective disorderMichael MD unspecified type 03/25/2018 Refill Psychiatry Kira Tran MD Schizoaffective disorder, unspecified type 03/24/2018 Office Visit Psychology Kulwinder Schrader Schizoaffective disorder, unspecified type (Primary Dx) 03/07/2018 Emergency Emergency Medicine Kira Tran MD Schizoaffective disorder, unspecified type (Primary Dx) 03/05/2018 Office Visit Psychiatry Nichole Loving, Schizoaffective disorder, ResidentCO unspecified type (Primary Dante Dao MD Dx) 02/22/2018 Office Visit Psychiatry Gabe Vega MD Schizoaffective disorder, bipolar type (Primary Dx); Schizoaffective disorder, unspecified type 01/22/2018 Office Visit Psychiatry Dante Dao MD Schizoaffective disorder, unspecified type (Primary Dx) 12/18/2017 Office Visit Psychiatry Dante Dao MD Depressed mood (Primary Dx) 11/20/2017 Office Visit Psychiatry Dante Dao MD Other schizophrenia (Primary Dx) 10/23/2017 Office Visit Psychiatry Dante Dao MD Undifferentiated schizophrenia 10/21/2017 Nurse Triage RodriguezjozefRatna 09/15/2017 Office Visit Psychiatry Clover Martell MD Undifferentiated schizophrenia (Primary Dx) 07/31/2017 Office Visit Psychiatry Dante Dao MD Other schizophrenia; Undifferentiated schizophrenia 07/03/2017 Nurse Only Psychiatry Peggy Basilio RN Psychiatric problem Rajinder Basilio (Primary Dx) NEIL Marshall 06/05/2017 Office Visit Psychiatry Dante Dao MD Other schizophrenia (Primary Dx); Undifferentiated schizophrenia 05/08/2017 Office Visit Psychiatry Dante Dao MD Other schizophrenia (Primary Dx) 05/01/2017 Office Visit Psychiatry Dante Dao MD Other schizophrenia (Primary Dx); Undifferentiated schizophrenia after 04/19/2017 Immunizations Name Dates Previously Given Next Due INVEGA SUSTENNA 156 mg/mL 01/22/2018, 05/08/2017, 05/01/2017 IM inj In Clinic PPD 03/24/2017 Social History Tobacco Use Types Packs/Day Years Used Date Former Smoker Alcohol Use Drinks/Week oz/Week Comments No Sex Assigned at Date Recorded Not on file Last Filed Vital Signs Vital Sign Reading Time Taken Blood Pressure 131/87 03/30/2018 8:16 PM CDT Pulse 84 03/30/2018 8:16 PM CDT Temperature 36.7 C (98.1 F) 03/30/2018 8:16 PM CDT Respiratory Rate 16 03/30/2018 8:16 PM CDT Oxygen Saturation 96% 03/30/2018 8:16 PM CDT Inhaled Oxygen - - Concentration Weight 102.5 kg (226 lb) 03/26/2018 9:30 AM CDT Height 180.3 cm (5' 11") 03/26/2018 9:30 AM CDT Body Mass Index 31.52 03/26/2018 9:30 AM CDT Plan of Treatment Date Type Specialty Care Team Description 04/23/2018 Office Visit Psychiatry Harry Vera, ResidentCO Department of Neurology - [address] [place] [address] 04/26/2018 Office Visit Psychology Kulwinder Schrader Results * UA CHEMISTRIES (03/07/2018 8:00 PM) Component Value Ref Range Color Yellow Clarity Clear Spec [place] 1.030 1.001 - 1.035 pH 5.0 5 - 8 Protein 1+ (A) NEG Glucose Negative NEG Ketone Trace (A) NEG Bilirubin Negative NEG Nitrate Negative NEG Urobilinogen <1.0 0.2 - 1.0 EU/dL Leukocyte Negative NEG Blood Negative NEG RBC 3 0 - 4 /HPF WBC <1 0 - 5 /HPF Mucous Present Specimen Performing Laboratory Urine MISYS * URINE DRUG SCREEN (03/07/2018 8:00 PM) Component Value Ref Range Amphetamine Negative NEG Comment: Calibrated Standard: D-Methamphetamine Positive if urine level >oc=2288 ng/mL Test performed on [id number] using EMIT Immunoassay Barbiturate Negative NEG Comment: Calibrated Standard: Secobarbital Positive if urine level is >if=659 ng/mL Test performed on [id number] using EMIT Immunoassay Benzodiazepine Negative NEG Comment: Calibrated Standard: Lormethazepam Positive if urine level is >de=020 ng/mL Test performed on [id number] using EMIT Immunoassay Cannabinoid Negative NEG Comment: Calibrated Standard: 11 nor-delta(9)-THC carboxylic a Positive if urine level >or=50 Test performed on [id number] using EMIT Immunoassay Cocaine Negative NEG Comment: Calibrated Standard: Benzoylecgonine Positive if urine level >fn=076 Test performed on [id number] using EMIT Immunoassay Opiate, Ur Negative NEG Comment: Calibrated Standard: Morphine Positive if urine level >vn=290 Test performed on [id number] using EMIT Immunoassay PCP Negative NEG Comment: Calibrated Standard: Phencyclidine Positive if urine level >or=25 Test performed on [id number] using EMIT Immunoassay Urine Toxicology Screen results are to be used only for Medical purposes. Specimen Performing Laboratory Urine MISYS after 04/19/2017
--- OUTSIDE RECORDS SUMMARY | 2019-04-15 05:37 | XMS REPORT | Clinical Summary ---
Author Author [facility] Organization [facility] Address Unknown Phone Unavailable Care Team Providers Care Bath Mixer Name Role Phone PCP Unavailable Allergies No [...] Office Visit Psychiatry Nichole Loving, Schizoaffective disorder, [place]ident[place] unspecified type (Primary Dante Dao MD Dx) [...] Other schizophrenia (Primary Dx); Undifferentiated schizophrenia after 04/18/2017 Immunizations Name Dates Previously Given Next Due [...] Description 04/23/2018 Office Visit Psychiatry Harry Vera, [place]ident[place] Department of Neurology - [address] [place] [address] 04/26/2018 Office Visit Psychology Kulwinder Schrader Results * UA CHEMISTRIES (03/07/2018 8:00 PM) Component Value Ref Range Color Yellow Clarity Clear Spec [place] 1.030 1.001 - 1.035 pH 5.0 5 [...] Calibrated Standard: D-Methamphetamine Positive if urine level >ty=1095 ng/mL Test performed on [id number] using EMIT Immunoassay Barbiturate Negative NEG Comment: Calibrated Standard: Secobarbital Positive if urine level is >od=428 ng/mL Test performed on [id number] using EMIT Immunoassay Benzodiazepine Negative NEG Comment: Calibrated Standard: Lormethazepam Positive if urine level is >qz=620 ng/mL Test performed on [id number] using EMIT Immunoassay Cannabinoid Negative NEG Comment: Calibrated Standard: 11 nor-delta(9)-THC carboxylic a Positive if urine level >or=50 Test performed on [id number] using EMIT Immunoassay Cocaine Negative NEG Comment: Calibrated Standard: Benzoylecgonine Positive if urine level >kb=645 Test performed on [id number] using EMIT Immunoassay Opiate, Ur Negative NEG Comment: Calibrated Standard: Morphine Positive if urine level >qw=853 Test performed on [id number] using EMIT Immunoassay PCP Negative NEG Comment: Calibrated Standard: Phencyclidine Positive if urine level >or=25 Test performed on [id number] using EMIT Immunoassay Urine Toxicology Screen results are to be used only for Medical purposes. Specimen Performing Laboratory Urine MISYS after 04/18/2017
--- OUTSIDE RECORDS SUMMARY | 2019-04-15 05:38 | XMS REPORT ---
Author [facility] Address Unknown Phone Unavailable Care Team Providers Care Pattern Painter Name Role Phone Unavailable Unavailable Payers Payer Name Policy Type Policy Number Effective Date Expiration Date Problems This patient has no known problems. Allergies, Adverse Reactions, Alerts Allergy Name Allergy Type Status Severity Reaction(s) Onset Date Inactive Date Treating Clinician Comments No Known Allergies DA Active U 2011-12-17 00:00:00 Medications This patient has no known medications. Encounters Start Date/Time End Date/Time Encounter Type Admission Type Attending Clinicians Care Facility Care Department Encounter ID 2017-03-20 15:29:00 Inpatient [facility] [id number] 2017-03-19 12:59:11 Inpatient [facility] [id number] 2017-03-17 12:49:50 Inpatient [facility] [id number] 2017-03-17 03:22:19 Inpatient [facility] [id number] 2019-03-18 00:00:00 2019-03-18 00:00:00 Outpatient [facility] [id number] 2019-02-14 20:39:45 2019-02-14 20:39:45 Emergency [facility] [id number] 2019-02-13 00:04:00 2019-02-13 00:04:[address] [place] [id number] 2018-08-20 00:00:00 2018-08-20 00:00:00 Outpatient [facility] [id number] 2018-08-19 00:00:00 2018-08-19 00:00:00 Outpatient [facility] [id number] 2018-07-23 14:41:19 2018-07-23 14:41:19 Outpatient [facility] [id number] 2018-07-23 12:22:24 2018-07-23 12:22:24 Emergency [facility] [id number] 2018-07-22 13:11:21 2018-07-22 13:11:21 Outpatient [facility] [id number] 2018-07-22 00:00:00 2018-07-22 00:00:00 Outpatient [facility] [id number] 2018-07-16 00:00:00 2018-07-16 00:00:00 Outpatient [facility] [id number] 2018-07-13 00:00:00 2018-07-13 00:00:00 Outpatient [facility] [id number] 2018-07-07 00:00:00 2018-07-07 00:00:00 Outpatient [facility] [id number] 2018-06-18 10:24:43 2018-06-18 10:24:43 Outpatient [facility] [id number] 2018-06-01 00:00:00 2018-06-01 00:00:00 Outpatient [facility] [id number] 2018-05-21 10:38:35 2018-05-21 10:38:35 Outpatient [facility] [id number] 2018-04-26 00:00:00 2018-04-26 00:00:00 Outpatient [facility] [id number] 2018-04-23 10:37:14 2018-04-23 10:37:14 Outpatient [facility] [id number] 2018-04-08 00:00:00 2018-04-08 00:00:00 Outpatient [facility] [id number] 2018-03-30 20:15:00 2018-03-30 20:15:00 Emergency [facility] [id number] 2018-03-26 09:30:00 2018-03-26 09:30:00 Outpatient [facility] [id number] 2018-03-26 00:00:00 2018-03-26 00:00:00 Outpatient [facility] [id number] 2018-03-24 10:59:45 2018-03-24 10:59:45 Outpatient [facility] [id number] 2018-03-07 17:26:02 2018-03-07 17:26:02 Emergency [facility] [id number] 2018-03-05 13:26:17 2018-03-05 13:26:17 Outpatient [facility] [id number] 2018-02-26 00:00:00 2018-02-26 00:00:00 Outpatient [facility] [id number] 2018-02-22 12:45:05 2018-02-22 12:45:05 Outpatient [facility] [id number] 2018-02-19 00:00:00 2018-02-19 00:00:00 Outpatient [facility] [id number] 2018-02-02 00:00:00 2018-02-02 00:00:00 Outpatient [facility] [id number] 2018-01-29 00:00:00 2018-01-29 00:00:00 Outpatient [facility] [id number] 2018-01-22 11:02:27 2018-01-22 11:02:27 Outpatient [facility] [id number] 2017-12-18 11:15:43 2017-12-18 11:15:43 Outpatient [facility] [id number] 2017-12-04 00:00:00 2017-12-04 00:00:00 Outpatient [facility] [id number] 2017-11-20 09:35:25 2017-11-20 09:35:25 Outpatient [facility] [id number] 2017-11-13 00:00:00 2017-11-13 00:00:00 Outpatient [facility] [id number] 2017-10-23 09:07:51 2017-10-23 09:07:51 Outpatient [facility] [id number] 2017-10-23 00:00:00 2017-10-23 00:00:00 Outpatient [facility] [id number] 2017-09-15 14:48:36 2017-09-15 14:48:36 Outpatient [facility] [id number] 2017-09-15 00:00:00 2017-09-15 00:00:00 Outpatient [facility] [id number] 2017-08-28 00:00:00 2017-08-28 00:00:00 Outpatient [facility] [id number] 2017-07-31 11:27:22 2017-07-31 11:27:22 Outpatient [facility] [id number] 2017-07-21 00:00:00 2017-07-21 00:00:00 Outpatient [facility] [id number] 2017-07-03 11:56:30 2017-07-03 11:56:30 Outpatient [facility] [id number] 2017-07-02 00:00:00 2017-07-02 00:00:00 Outpatient [facility] [id number] 2017-06-05 10:59:10 2017-06-05 10:59:10 Outpatient [facility] [id number] 2017-05-08 11:41:48 2017-05-08 11:41:48 Outpatient [facility] [id number] 2017-05-02 00:00:00 2017-05-03 00:00:00 [facility] [id number] 2017-05-01 11:58:02 2017-05-01 11:58:02 Outpatient [facility] [id number] 2017-04-14 00:00:00 2017-04-14 00:00:00 Outpatient [facility] [id number] 2017-04-10 15:42:31 2017-04-10 15:42:31 Outpatient [facility] [id number] 2017-03-27 14:58:37 2017-03-27 00:00:00 Inpatient [facility] [id number] 2017-03-26 16:14:19 2017-03-26 00:00:00 [facility]patient [facility] [id number] 2017-03-26 13:37:34 2017-03-26 00:00:00 Inpatient [facility] [id number] 2017-03-19 16:00:07 2017-03-19 00:00:00 Inpatient [facility] [id number] 2017-03-14 11:57:34 2017-03-14 11:57:34 Emergency [facility] [id number]
--- OUTSIDE RECORDS SUMMARY | 2019-04-15 05:38 | XMS REPORT | Clinical Summary ---
Author Author [facility] Organization [facility] Address Unknown Phone Unavailable Care Team Providers Care In Mold Coater Name Role Phone PCP Unavailable Allergies No [...] unspecified type 02/22/2018 Office Visit Psychiatry after 02/12/2018 Immunizations Name Dates Previously Given Next Due [...] SCREEN STAT 03/07/2018 8:00 PM CDT after 02/12/2018 Results * UA CHEMISTRIES (07/23/2018 12:37 PM CDT) Only the most recent of 2 results within the time period is included. Color Yellow BT MAIN-STATION 3 Clarity Clear BT MAIN-STATION 3 Spec [place] 1.018 1.001 - 1.035 BT MAIN-STATION 3 [...] Calibrated Standard: D-Methamphetamine Positive if urine level >dc=8908 ng/mL Test performed on [id number] using EMIT Immunoassay Barbiturate Negative NEG BT MAIN-STATION Comment: 1 Calibrated Standard: Secobarbital Positive if urine level is >ox=114 ng/mL Test performed on [id number] using EMIT Immunoassay Benzodiazepine Negative NEG BT MAIN-STATION Comment: 1 Calibrated Standard: Lormethazepam Positive if urine level is >pq=765 ng/mL Test performed on [id number] using EMIT Immunoassay Cannabinoid Negative NEG BT MAIN-STATION Comment: 1 Calibrated Standard: 11 nor-delta(9)-THC carboxylic a Positive if urine level >or=50 Test performed on [id number] using EMIT Immunoassay Cocaine Negative NEG BT MAIN-STATION Comment: 1 Calibrated Standard: Benzoylecgonine Positive if urine level >hd=975 Test performed on [id number] using EMIT Immunoassay Opiate, Ur Negative NEG BT MAIN-STATION Comment: 1 Calibrated Standard: Morphine Positive if urine level >og=268 Test performed on [id number] using EMIT Immunoassay PCP Negative NEG BT MAIN-STATION Comment: 1 Calibrated Standard: Phencyclidine Positive if urine level >or=25 Test performed on [id number] using EMIT Immunoassay Urine Toxicology Screen results are to be used only for Medical purposes. Performing Organization Address [facility] Phone Number [place] BT MAIN-STATION 1 after 02/12/2018 Insurance Type Payer Benefit Subscriber ID Effective Phone Address Plan / Dates Group [employer] MED[employer] HMO AMER[employer]ANTA xxxxxxxxx 2017-P [phone] [address] [place] [address] [employer] MEDICA[employer] HMO AMER[employer] xxxxxxxxx 2017- [phone] [address] [address] [place] [address] Advance Directives For more information, please contact: [address] [address] Date Inactivated Comments Code Status Date Activated 03/27/2017 9:44 PM Full Code 03/17/2017 3:39 AM
--- OUTSIDE RECORDS SUMMARY | 2019-04-15 05:38 | XMS REPORT | Clinical Summary ---
Author Author [facility] Organization [facility] Address Unknown Phone Unavailable Care Team Providers Care Bearing Grinder Name Role Phone PCP Unavailable Allergies No [...] 18 SyrgIndications: days. Schizoaffective disorder, unspecified type divalproex (DEPAKOTE ER) Take 1 tablet by mouth 90 tablet 0 04/02/20 Active 500 mg extended release daily. 18 tabletIndications: Schizoaffective disorder, unspecified type sertraline (ZOLOFT) 50 mg Take 1 tablet by mouth 30 tablet 1 04/23/20 Active tabletIndications: daily. 18 Depression, unspecified depression type divalproex (DEPAKOTE) 500 Take 1 tablet [...] 18 18 ued Schizoaffective disorder, unspecified type hydrOXYzine (ATARAX) 25 Take 1 tablet by mouth 2 40 tablet 0 03/07/20 04/23/20 Discontin mg tabletIndications: times daily as needed for 18 18 ued Schizoaffective disorder, Anxiety or Insomnia. unspecified type escitalopram (LEXAPRO) 5 Take 1 tablet by mouth 30 tablet 1 03/26/20 04/23/20 Discontin mg tabletIndications: daily. 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 Schizoaffective disorder, bipolar type 03/14/2017 Muscle ache Nonintractable headache Trauma Schizoaffective disorder Encounters Date Type Specialty Care Team Description 04/23/2018 Office Visit Psychiatry Harry Vera, Schizoaffective disorder, Resident[place] unspecified type (Primary Dx); Depression, unspecified depression type 04/02/2018 Telephone Psychiatry Dante Dao MD Follow-up 03/30/2018 Emergency Emergency Medicine 03/26/2018 Office Visit Psychiatry Nichole John Schizoaffective disorder, MD Michael unspecified type 03/25/2018 Refill Psychiatry Kira Tran MD Schizoaffective disorder, unspecified type 03/24/2018 Office Visit Psychology Kulwinder Schrader Schizoaffective disorder, unspecified type (Primary Dx) 03/07/2018 Emergency Emergency Medicine Kira Tran MD Schizoaffective disorder, unspecified type (Primary Dx) 03/05/2018 Office Visit Psychiatry Nichole Loving, Schizoaffective disorder, Fellow(MD) unspecified type (Primary Dante Dao MD Dx) [...] Dao MD Undifferentiated schizophrenia 10/21/2017 Nurse Triage Ratna Meyer 09/15/2017 Office Visit Psychiatry Clover Martell MD Undifferentiated schizophrenia (Primary Dx) 07/31/2017 Office Visit Psychiatry Dante Dao MD Other schizophrenia; Undifferentiated schizophrenia 07/03/2017 Nurse Only Psychiatry Peggy Basilio RN Psychiatric problem Rajinder Basilio (Primary Dx) NEIL Marshall 06/05/2017 Office Visit Psychiatry Dante Dao MD Other schizophrenia (Primary Dx); Undifferentiated schizophrenia after 2017 Immunizations Name Dates Previously Given Next Due INVEGA SUSTENNA 156 mg/mL 01/22/2018, 05/08/2017, 05/01/2017 IM inj In Clinic PPD 03/24/2017 Social History Tobacco Use Types Packs/Day Years Used Date Former Smoker Alcohol Use Drinks/Week oz/Week Comments No Sex Assigned at Date Recorded Not on file Last Filed Vital Signs Vital Sign Reading Time Taken Blood Pressure 124/76 04/23/2018 10:37 AM CDT Pulse 88 04/23/2018 10:37 AM CDT Temperature 36.7 C (98 F) 04/23/2018 10:37 AM CDT Respiratory Rate 18 04/23/2018 10:37 AM CDT Oxygen Saturation 100% 04/23/2018 10:37 AM CDT Inhaled Oxygen - - Concentration Weight 103 kg (227 lb) 04/23/2018 10:37 AM CDT Height 180.3 cm (5' 11") 04/23/2018 10:37 AM CDT Body Mass Index 31.66 04/23/2018 10:37 AM CDT Plan of Treatment Date Type Specialty Care Team Description 05/21/2018 Office Visit Psychiatry 06/18/2018 Office Visit Psychiatry Dante Dao MD return - injection [address] [place] [address] [phone] Health Maintenance Due Date Last Done Comments IMM Influenza Seasonal 07/26/2018 Oct to December (>/=19 yrs) Results * UA CHEMISTRIES (03/07/2018 8:00 PM) Component Value Ref Range Color Yellow Clarity Clear Spec [place] 1.030 1.001 - 1.035 pH 5.0 5 [...] Calibrated Standard: D-Methamphetamine Positive if urine level >gq=2927 ng/mL Test performed on [id number] using EMIT Immunoassay Barbiturate Negative NEG Comment: Calibrated Standard: Secobarbital Positive if urine level is >ti=935 ng/mL Test performed on [id number] using EMIT Immunoassay Benzodiazepine Negative NEG Comment: Calibrated Standard: Lormethazepam Positive if urine level is >al=519 ng/mL Test performed on [id number] using EMIT Immunoassay Cannabinoid Negative NEG Comment: Calibrated Standard: 11 nor-delta(9)-THC carboxylic a Positive if urine level >or=50 Test performed on [id number] using EMIT Immunoassay Cocaine Negative NEG Comment: Calibrated Standard: Benzoylecgonine Positive if urine level >hw=024 Test performed on [id number] using EMIT Immunoassay Opiate, Ur Negative NEG Comment: Calibrated Standard: Morphine Positive if urine level >ip=379 Test performed on [id number] using EMIT Immunoassay PCP Negative NEG Comment: Calibrated Standard: Phencyclidine Positive if urine level >or=25 Test performed on [id number] using EMIT Immunoassay Urine Toxicology Screen results are to be used only for Medical purposes. Specimen Performing Laboratory Urine MISYS after 2017
--- OUTSIDE RECORDS SUMMARY | 2019-04-15 05:38 | XMS REPORT | Clinical Summary ---
Author Author [facility] Organization [facility] Address Unknown Phone Unavailable Care Team Providers Care Insurance Marketing Specialist Name Role Phone PCP Unavailable Allergies No [...] capsule by 8 Depressed mood mouth daily. 06/18/2018 Discontinued paliperidone (INVEGA Inject 0.75 0.75 [...] Muscle ache Nonintractable headache Trauma Schizoaffective disorder Memory deficit Encounters Care Team Description Date Type Specialty Claudia Donovan MD Schizoaffective disorder, bipolar type; Memory deficit 02/14/2019 Emergency Emergency Medicine - 02/15/2019 02/14/2019 Travel Rebecca Luis ResidentMD Le, Hai M, MD Depressed mood (Primary Dx) 07/23/2018 Office Visit Psychiatry Shelly Ramirez MD Schizoaffective disorder, unspecified type (Primary Dx) 07/23/2018 Emergency Emergency Medicine Clover Martell MD Magdos, Christi, RN Psychiatric complaint (Primary Dx) 07/22/2018 Nurse Only Psychiatry Clover Martell MD Schizoaffective disorder, unspecified type 07/22/2018 Orders Only Psychiatry Dante Dao MD Depression, unspecified depression type; Schizoaffective disorder, unspecified type 06/18/2018 Office Visit Psychiatry Cherelle Ortiz, Dante Fajardo MD 05/21/2018 Nurse Only Psychiatry Harry Vera [...] type (Primary Dx) 03/24/2018 Office Visit Psychology after 03/08/2018 Immunizations Name Dates Previously Given Next Due [...] Vital Signs Time Taken Vital Sign Reading 02/15/2019 11:44 AM CDT Blood Pressure 119/76 02/15/2019 11:44 AM CDT Pulse 74 02/15/2019 11:44 AM CDT Temperature 37.1 C (98.8 F) 02/15/2019 11:44 AM CDT Respiratory Rate 18 02/15/2019 11:44 AM CDT Oxygen Saturation 98% - Inhaled Oxygen - Concentration 02/14/2019 9:06 PM CDT Weight 104.3 kg (230 lb) 02/14/2019 9:06 PM CDT Height 180.3 cm (5' 11") 02/14/2019 9:06 PM CDT Body Mass Index 32.08 Plan of Treatment Care Team Description Date Type Specialty Dante Dao MD [address] [address] [phone] 03/18/2019 Office Visit Psychiatry Health Maintenance Due Date Last Done Comments IMM Influenza Seasonal 07/26/2019 Oct to December (>/=19 yrs) Procedures Comments Procedure Name Priority Date/Time Associated Diagnosis URINE DRUG SCREEN STAT 02/14/2019 8:52 PM CDT UA CHEMISTRIES STAT 02/14/2019 8:52 PM CDT URINE DRUG SCREEN STAT 07/23/2018 12:37 PM CDT UA CHEMISTRIES STAT 07/23/2018 12:37 PM CDT after 03/08/2018 Results * UA CHEMISTRIES (02/14/2019 8:52 PM CDT) Only the most recent of 2 results within the time period is included. Color Yellow BT MAIN-STATION 3 Clarity Clear BT MAIN-STATION 3 Spec [place] 1.029 1.001 - 1.035 BT MAIN-STATION 3 pH 5.0 5 - 8 BT MAIN-STATION 3 Protein 1+ (A) NEG BT MAIN-STATION 3 Glucose Negative NEG BT MAIN-STATION 3 Ketone Negative NEG BT MAIN-STATION 3 Bilirubin Negative NEG BT MAIN-STATION 3 Nitrate Negative NEG BT MAIN-STATION 3 Urobilinogen 1.0 0.2 - 1.0 EU/dL BT MAIN-STATION 3 Leukocyte Negative NEG BT MAIN-STATION 3 Blood Negative NEG BT MAIN-STATION 3 RBC 3 0 - 4 /HPF BT MAIN-STATION 3 WBC <1 0 - 5 /HPF BT MAIN-STATION 3 Mucous Present BT MAIN-STATION 3 Specimen Urine Performing Organization Address City/State/Zipcode Phone Number MISYS BT MAIN-STATION 3 * URINE DRUG SCREEN (02/14/2019 8:52 PM CDT) Only the most recent of 2 results within the time period is included. Amphetamine Negative NEG BT MAIN-STATION 4 Barbiturate Negative NEG BT MAIN-STATION 4 Benzodiazepine Negative NEG BT MAIN-STATION 4 Cannabinoid Negative NEG BT MAIN-STATION 4 Cocaine Negative NEG BT MAIN-STATION 4 Opiate, Ur Negative NEG BT MAIN-STATION 4 PCP Negative NEG BT MAIN-STATION 4 Specimen Urine Performing Organization Address City/State/Zipcode Phone Number MISYS BT MAIN-STATION 4 after 03/08/2018 Insurance Type Payer Benefit Subscriber ID Effective Phone Address Plan / Dates Group [employer] MED[employer] HMO AMERIVANTA xxxxxxxxx 2018-P [phone] [id number] [place] [address] [place] [id number] M[place] xxxxxxxxx 2019-P [id number] [place] [address] Advance Directives For more information, please contact: [address] [address] Date Inactivated Comments Code Status Date Activated 03/27/2017 9:44 PM Full Code 03/17/2017 3:39 AM
--- OUTSIDE RECORDS SUMMARY | 2019-04-15 05:38 | XMS REPORT | Clinical Summary ---
Author Author [facility] Organization [facility] Address Unknown Phone Unavailable Care Team Providers Care Tribal Council Member Name Role Phone PCP Unavailable Allergies No [...] (Primary Dx) 03/24/2018 Office Visit Psychology after 03/15/2018 Immunizations Name Administration Dates Next Due INVEGA SUSTENNA 117 05/21/2018, 04/23/2018, 03/26/2018, 02/22/2018, MG/0.75 ML 11/20/2017, 10/23/2017, 09/15/2017, 07/31/2017, 07/03/2017, 06/05/2017 INVEGA SUSTENNA 156 mg/mL 01/22/2018, 05/08/2017, 05/01/2017 IM inj In Clinic PPD 03/24/2017 Social History Date Tobacco Use Types Packs/Day Years Used Former Smoker Drinks/Week oz/Week Comments Alcohol Use No Sex Assigned at Date Recorded Not on file Industry Job Start Date Occupation Not on file Not on file Not on file Travel End Travel History Travel Start No recent travel history available. Last Filed Vital Signs Reading Time Taken Comments Vital Sign 119/76 02/15/2019 11:44 AM CDT Blood Pressure 74 02/15/2019 11:44 AM CDT Pulse 37.1 C (98.8 F) 02/15/2019 11:44 AM CDT Temperature 18 02/15/2019 11:44 AM CDT Respiratory Rate 98% 02/15/2019 11:44 AM CDT Oxygen Saturation - - Inhaled Oxygen Concentration 104.3 kg (230 lb) 02/14/2019 9:06 PM CDT Weight 180.3 cm (5' 11") 02/14/2019 9:06 PM CDT Height 32.08 02/14/2019 9:06 PM CDT Body Mass Index Plan of Treatment Care Team Description Date Type Specialty Dante Dao MD [address] [address] [phone] 03/18/2019 Office Visit Psychiatry Health Maintenance Due Date Last Done Comments IMM Influenza Seasonal 07/26/2019 Oct to December (>/=19 yrs) Procedures Comments Procedure Name Priority Date/Time Associated Diagnosis URINE DRUG SCREEN STAT 02/14/2019 8:52 PM CDT UA CHEMISTRIES STAT 02/14/2019 8:52 PM CDT URINE DRUG SCREEN STAT 07/23/2018 12:37 PM CDT UA CHEMISTRIES STAT 07/23/2018 12:37 PM CDT after 03/15/2018 Results * UA CHEMISTRIES (02/14/2019 8:52 PM CDT) Only the most recent of 2 results within the time period is included. Color Yellow BT MAIN-STATION 3 Clarity Clear BT MAIN-STATION 3 Spec [place] 1.029 1.001 - 1.035 BT MAIN-STATION 3 [...] Phone Number MISYS BT MAIN-STATION 4 after 03/15/2018 Insurance Type Payer Benefit Subscriber ID Effective Phone Address Plan / Dates Group [employer] MEDIC[employer] HMO AMER[employer]A xxxxxxxxx 2018-P [phone] [id number] [place] [address] [place] MED[place] [id number] MQ xxxxxxxxx 2019-P [id number] [place] [address] Advance Directives Date Inactivated Comments Code Status Date Activated 03/27/2017 9:44 PM Full Code 03/17/2017 3:39 AM
[2019-04-15 13:45] VITALS: BP 106/60
--- NOTE | 2019-05-27 00:12 | Operative Report ---
DATE OF PROCEDURE: 04/15/2019 SURGEON: Dave Fuentes MD PREOPERATIVE DIAGNOSIS: Phimosis. POSTOPERATIVE DIAGNOSIS: Phimosis. OPERATION PERFORMED: 1. Circumcision. 2. Regional nerve block (separate procedure performed for postoperative pain control and not required for the actual performance of surgery, which was done under general anesthesia). ANESTHESIA: General. COMPLICATIONS: None. CLINICAL SUMMARY: Duong Ibarra III is a 38-year-old man with phimosis. He was brought for the above procedures. He is aware of the risks of bleeding, infection, injury to adjacent structures, need for additional procedures, and elected to proceed. OPERATIVE PROCEDURE IN DETAIL: Informed consent was verified. Duong Ibarra III was properly identified, taken to the operating room, placed on the operating table in supine position. Anesthesia was uneventfully begun. The patient's genitalia were then shaved, prepared, and draped in usual sterile fashion. Marcaine without epinephrine was utilized to infiltrate subcutaneously circumferentially to the base of the penis as well the regional dorsal penile nerves. This was done for postoperative pain control and not required for the actual performance of surgery, which was done under general anesthesia. A circumferential incision was then made overlying the mata of the glans penis. The foreskin was fully retracted and secondary incision was made approximately 4 to 5 mm away from the mata of the glans penis along the inner preputial skin. A sleeve circumcision was then performed and foreskin was removed, pinpoint electrocautery was utilized to achieve hemostasis. The patient's incision was then approximated with 4-0 chromic suture in running fashion. Excellent cosmetic result was achieved. Sterile dressing was applied of bacitracin ointment followed by Xeroform gauze, followed by loose-fitting Sonia, and the patient was uneventfully reversed from anesthesia and taken to recovery room in stable condition. Explicit postoperative instructions were given. We will follow the patient up in the office. Dave Fuentes MD [place]/MODL /[id number]
== END | disposition home or self-care (01) ==
LOC: OR 05:30
PROVIDERS: ATTEND Urology
DX: N47.1 Phimosis (principal); N47.7 Other inflammatory diseases of prepuce; G47.33 Obstructive sleep apnea (adult) (pediatric); J45.909 Unspecified asthma, uncomplicated; F25.9 Schizoaffective disorder, unspecified; Z87.891 Personal history of nicotine dependence
CPT/HCPCS: 54161; 88304; J0690; J1100; J1170; J2001; J2250; J2405; J2704; J3490; J3010